=== PATIENT | male | born 1940 | race Caucasian/White ===

== ENCOUNTER 2019-09-18 06:32 | Observation (INO) | payer OTHER ==
[2019-09-18] VITALS (13 sets, daily range): BP systolic 120–167; BP diastolic 62–131
[~2019-09-18] VITALS: Ht 182.9 cm; Wt 147.4 kg
--- NOTE | ~2019-09-18 | P ---
[facility] [place] [address] PROCEDURE REPORT Name: PARKER NARVAEZ Room #: 210-P [facility] Kameron#: [id number] Admission: 09/18/19 Attend Phys: Gianni Mccain Discharge: 09/19/19 Date of : 42 Report #: [id number] THIS REPORT FOR: cc: Aurelio Roblero MD,Antoni lAva MD, MD ~ CC: Gianni Roblero PREOPERATIVE DIAGNOSES: 1. Sick sinus syndrome. 2. Tachycardia-bradycardia syndrome. 3. Atrial fibrillation. POSTOPERATIVE DIAGNOSES: 1. Sick sinus syndrome. 2. Tachycardia-bradycardia syndrome. 3. Atrial fibrillation. PROCEDURES PERFORMED: Dual-chamber pacemaker implantation. HISTORY: The patient is a 78-year-old with history of atrial fibrillation, sick sinus syndrome, and tachycardia-bradycardia syndrome here for dual chamber pacemaker implantation. ANESTHESIA: The patient underwent MAC anesthesia with no anesthesia related complications. DESCRIPTION OF PROCEDURE: The patient underwent informed consent. We discussed the details of the procedure including the risks, which include but not limited to bleeding, infection, vascular damage, cardiac perforation, and pneumothorax. He understood these risks and was willing to proceed. The patient was brought to EP laboratory in fasting and unsedated state, prepped and draped in a sterile fashion. He received IV antibiotics and underwent a venogram showing patency of left axillary vein. Next, lidocaine was injected below the level of left clavicle. Incision was made, pocket was created over prepectoral fascia and access was obtained twice to left axillary vein using the extrathoracic approach with sheaths positioned using the modified Seldinger technique. Next, under fluoroscopy, leads were positioned into the right ventricular apex. The patient is morbidly obese and therefore, I did have to switch to a 65 cm lead. The lead was placed in the right ventricular apex with adequate pacing and sensing thresholds. Next, an atrial lead was positioned in the right atrial appendage. This was functioning normally as well. The leads were sutured to the prepectoral fascia. Device was connected, tested and found to be functioning normally, placed in the pocket. Pocket was irrigated with vancomycin and the pocket was closed in 2 layers and surgical glue was placed [facility] [address] [place] [address] PROCEDURE REPORT Name: PARKER NARVAEZ Room #: 210-[facility] M.R.#: [id number] Admission: 09/18/19 Attend Phys: Gianni Mccain Discharge: 09/19/19 Date of : 42 Report #: [id number] outer skin layer. The patient awoke neurologically and hemodynamically intact. No complications and no significant bleed. Implanted pacemaker was a Medtronic, model #W3DR01, serial #[id number]. The atrial lead was a Medtronic model #5076, serial #[id number]. RV lead was a Medtronic model #5076, 65 cm, serial #[id number]. The atrial lead demonstrated a P-wave of 1.1 millivolts, pacing impedance of 532 ohms and the pacing threshold 1.4 volts at 0.4 milliseconds. RV lead demonstrated a R-wave of 8.8 millivolts, pacing impedance of 760 ohms and the pacing threshold of 1.3 volts at 0.4 milliseconds. The pacemaker was programmed to DDDR 60-130 mode. CONCLUSIONS: 1. Successful dual-chamber pacemaker implantation. 2. Satisfactory atrial and ventricular pacing and sensing thresholds. By: [id number] Antoni Figueroa MD /nt
[~2019-09-18 06:32] MED LIST: ASPIR 8181 MG PO; ASPIRIN325 PO; BACTRIM DS TAB1 EACH PO; CARDIZEM CD240 MG PO; CLARITIN10 MG PO; COUMADIN 5 MG TA5 M1 PO; FOLTANX TABLET1 EACH PO; GLUCOTROL5 MG PO; HUMALOG100 UNIT/2 SUBQ; HYDROCHLOROTH12.5 M1 PO; LIPITOR 20 MG T20 M1 PO; LISINOPRIL20 MG PO; METFORMIN HCL500 MG PO; NITROGLYCERIN0.4 MG SUBLING; NORVASC5 MG PO; PACERONE 200 M200 M1 PO; PLAVIX 75 MG TA75 M1 PO; PROTONIX40 M1 PO; REGLAN 10 MG TA10 MG PO; SORINE 80 MG TA80 M1 PO; TYLENOL325 MG PO; XANAX 0.25 MG0.25 MG PO
[2019-09-18 07:31] LABS: ABSOLUTE NEUTROPHILS 3.4 thou/uL (1.4-8.2); EOSINOPHILS 3.4 % (0.0-3.0); HEMATOCRIT 42.1 % (42.0-52.0); HEMOGLOBIN 14.1 gm/dL (14.0-18.0); MCH 29.1 pg (26.0-34.0); MCHC 33.6 g/dL (28.0-37.0); MCV 86.8 fL (80.0-100.0); MONOCYTES 8.6 % (1.0-8.0); PLATELET COUNT 159 thou/uL (150-400); RBC 4.85 mil/uL (4.50-6.00); RDW 16.6 % (10.5-14.5); WBC 4.7 thou/uL (4.0-11.0)
[2019-09-18 07:42] LABS: CALCIUM 9.1 mg/dL (8.5-10.1); POTASSIUM 4.2 mmol/L (3.5-5.1)
[2019-09-18 07:43] LABS: INR 1.2; PROTIME 11.9 Seconds (9.3-11.4)
[2019-09-18 07:48] LABS: ALBUMIN 3.4 g/dL (3.4-5.0); TOTAL BILIRUBIN 0.5 mg/dL (<0.1-1.0); TOTAL PROTEIN 7.4 g/dL (6.4-8.2)
[2019-09-18] MEDS ORDERED: ASA81BEC PO (08:00)
[2019-09-18] MEDS ORDERED: TAPAZOLE5 MG PO (08:07)
[2019-09-18] MEDS ORDERED: ARICEPT10 M1 PO (08:08)
[2019-09-18] MEDS ORDERED: NEURONTIN 300M300 M2 PO (08:09)
[2019-09-18] MEDS ORDERED: OMEPRAZOLE 20 M20 M1 PO (08:10)
[2019-09-18] MEDS ORDERED: NAMENDA 10 MG T10 MG PO (08:10)
[2019-09-18] MEDS ORDERED: BASAGLAR K100 UNIT/1 SUBQ (08:11)
--- NOTE | 2019-09-18 16:55 | NUR ---
TO UNIT BY CART POST PACEMAKER PLACEMENT AT 1115, REPORT FROM AFUA BLACKMAN. VSS. ORIENTED TO ROOM, FALL RISK, AND POSTOP EVENTS. DENIED PAIN. HTN NOTED. HAS AMBULATED TO BR WITH HIS CANE AND ASSIST X1 POST BEDREST. SR PER TELE WITH BBB. WILL CONTINUE TO FOLLOW CLOSELY.
--- NOTE | 2019-09-19 04:35 | NUR ---
ASSUMED CARE OF PT AT 1900HRS. PT IS EXTREMELY NIKOLSKI HUT IS AOX4. FALL PRECAUTION IN PLACE FOR SAFETY. PT IS POST OP DAY 0 AND SURGICAL SITE IS CDI. PT DENIES ANY SIGNIFICANT PAIN, NAUSEA OR SOA. PT WEARS CPAP AT HS AND USED 2L O2 VIA NC PRN. PT WAS ABLETO GET COMFORTABLE AND SLEEP PART OF THE SHIFT. VSS AND NO S/S OF ACUTE DISTRESS. WILL CONTINUE TO MONITOR.
[2019-09-19 04:45] VITALS: BP 109/53
[2019-09-19 07:15] VITALS: BP 120/59
[2019-09-19 10:34] VITALS: BP 120/59
[2019-09-19 10:52] VITALS: BP 120/59
--- NOTE | 2019-09-19 11:15 | NUR ---
ASSUMED CARE PT SHIFT CHANGE. ASSESSMENT CHARTED.MEDS GIVEN PER JUL. PT ALERT AND ORIENTED.VSS. LEFT CHEST SITE DRY INTACT NO DRAINAGE. APACED ON MONITOR. NO C/O PAIN. EAGER TO BE DC HOME. DC PAPERWORK DISCUSSED WITH PT COMMUNCATES UNDERSTANDING. O2 SATS WNL ON ROOM AIR. PT LEFT UNIT AT APPROX 1110 WITH BELONGINGS AND CPAP MACHINE. TELE REMOVED. IV REMOVED
== END 2019-09-19 11:10 | disposition home or self-care (01) ==
LOC: CATH 06:32 → 2N 11:29 → ENTRNSPT 09-19 10:57 → EDTRNSPTSTS 09-19 11:00 → 2N 09-19 11:10
PROVIDERS: Internal Medicine Cardiovascular Disease; ADMIT Internal Medicine
DX: I49.5 Sick sinus syndrome (principal); I48.0 Paroxysmal atrial fibrillation; N18.9 Chronic kidney disease, unspecified
CPT/HCPCS: 62110; 62900; 70005